=== PATIENT | female | born 1990 | race Caucasian/White ===

== ENCOUNTER 2024-01-18 16:39 | Emergency (ER) | payer SELFPAY ==
[~2024-01-18] VITALS: Ht 165.1 cm; Wt 59.0 kg
[2024-01-18 17:08] VITALS: BP 134/83; PULSE 103; RESP 17; O2SAT 98
== END 2024-01-18 17:23 | disposition home or self-care (01) ==
LOC: EDBD 16:39 → ER 16:39 → EDUNIT# 16:39 → ER 17:23
DX: F10.10 Alcohol abuse, uncomplicated (principal); F14.10 Cocaine abuse, uncomplicated; Z88.8 Allergy status to other drugs, medicaments and biological substances